=== PATIENT | female | born 2000 | race Caucasian/White ===

== ENCOUNTER → 2019-08-12 | Outpatient (CLI) | payer OTHER ==
[2019-08-12 17:43] LABS: BASO % 0.6 % (0.0-1.0); EOS # 0.1 10^3/uL (0.0-0.5); EOS % 1.4 % (0.0-3.0); HEMATOCRIT 42.5 % (36.0-47.0); HEMOGLOBIN 13.4 g/dl (12.0-15.5); LYMPH # 1.5 10^3/uL (1.5-5.0); LYMPH % 23.8 % (24.0-44.0); MEAN CORPUSCULAR HEMOGLOBIN 28.4 pg (27.0-33.0); MEAN CORPUSCULAR HGB CONC 31.5 g/dl (32.0-36.5); MONO # 0.8 10^3/uL (0.0-0.8); MONO % 12.8 % (0.0-5.0); NEUTROPHILS # 3.9 10^3/uL (1.5-8.5); NEUTROPHILS % 61.1 % (36.0-66.0); PLATELET COUNT, AUTOMATED 344 10^3/uL (150-450); RED BLOOD COUNT 4.72 10^6/uL (4.00-5.40); WHITE BLOOD COUNT 6.5 10^3/uL (4.0-10.0)
[2019-08-12 17:55] LABS: ALBUMIN 3.8 GM/DL (3.2-5.2); ALT/SGPT 24 U/L (12-78); BILIRUBIN,TOTAL 0.4 MG/DL (0.2-1.0); BLOOD UREA NITROGEN 9 MG/DL (7-18); CALCIUM LEVEL 9.2 MG/DL (8.5-10.1); CARBON DIOXIDE LEVEL 27 MEQ/L (21-32); CHLORIDE LEVEL 108 MEQ/L (98-107); CHOLESTEROL LEVEL 175 MG/DL (<200); CHOLESTEROL RISK RATIO 2.536 (<5); CREATININE FOR GFR 0.79 MG/DL (0.55-1.30); FREE T4 0.89 NG/DL (0.76-1.46); GLOMERULAR FILTRATION RATE > 60.0 (>60); GLUCOSE, FASTING 88 MG/DL (70-100); HDL CHOLESTEROL 69 MG/DL (>40); LDL CHOLESTEROL 82 MG/DL (<100); NON-HDL-C 106 MG/DL; POTASSIUM SERUM 4.4 MEQ/L (3.5-5.1); SODIUM LEVEL 141 MEQ/L (136-145); THYROID STIMULATING HORMONE 0.847 uIU/ML (0.358-3.740); TOTAL PROTEIN 7.2 GM/DL (6.4-8.2); TRIGLYCERIDES LEVEL 119 MG/DL (<150)
[2019-08-12 18:00] LABS: HEMOGLOBIN A1c 5.5 %
[2019-08-14 10:40] LABS: RUBELLA IgG QUALITATIVE IMMUNE (IMMUNE)
[2019-08-15 08:26] LABS: MUMPS VIRUS IgG ANTIBODY 65.3 AU/mL (Immune >10.9)
== END ==
LOC: M WUC 12:02
PROVIDERS: ATTEND Nurse Practitioner
DX: Z00.01 Encounter for general adult medical examination with abnormal findings (principal)

== ENCOUNTER → 2019-10-05 | Outpatient (REF) | payer OTHER ==
[2019-10-05 15:42] LABS: CHLAMYDIA DNA AMPLIFICATION NEGATIVE (NEGATIVE); GC DNA AMPLIFICATION NEGATIVE (NEGATIVE)
== END ==
LOC: M SFHCWAGY 10:19
PROVIDERS: ATTEND Nurse Practitioner Family
DX: Z12.4 Encounter for screening for malignant neoplasm of cervix (principal); Z11.3 Encounter for screening for infections with a predominantly sexual mode of transmission

== ENCOUNTER → 2019-10-05 | Outpatient (CLI) | payer OTHER ==
[2019-10-05 13:35] LABS: HEMATOCRIT 42.6 % (36.0-47.0); HEMOGLOBIN 13.7 g/dl (12.0-15.5); MEAN CORPUSCULAR HEMOGLOBIN 28.7 pg (27.0-33.0); MEAN CORPUSCULAR HGB CONC 32.2 g/dl (32.0-36.5); MEAN CORPUSCULAR VOLUME 89.3 fl (80.0-96.0); PLATELET COUNT, AUTOMATED 370 10^3/uL (150-450); RED BLOOD COUNT 4.77 10^6/uL (4.00-5.40)
== END ==
LOC: M PLALAB 09:40
PROVIDERS: ATTEND Nurse Practitioner Family
DX: Z11.3 Encounter for screening for infections with a predominantly sexual mode of transmission (principal); N92.6 Irregular menstruation, unspecified

== ENCOUNTER → 2019-10-12 | Outpatient (CLI) | payer OTHER ==
--- NOTE | 2019-10-13 03:47 | REP ---
Clinical: Pelvic pain/cramping and irregular menstrual cycles. Technique: Transabdominal pelvic ultrasound with color Doppler evaluation of the ovaries. Findings: Normal anteverted uterus measures 7.7 x 5.0 x 3.0 cm. Endometrial complex measures 3.8 mm thickness. No discrete uterine or endometrial abnormalities appreciated. Ovaries are normal in vascularity without torsion. Right ovary measures 6.2 x 2.5 x 4.7 cm (RI 0.67) and includes two simple likely physiologic cysts measuring 3.1 cm and 3.0 cm maximal diameter. Left ovary measures 1.9 x 1.2 x 1.6 cm (RI 0.52). No pelvic fluid or adnexal mass lesion. Impression: 1. Normal uterus. 2. Two right ovarian cysts likely physiologic. Consider follow-up examination in 4-6 weeks to evaluate for resolution if the patient remains symptomatic.
== END ==
LOC: M WHC 09:29
PROVIDERS: ATTEND Nurse Practitioner Family
DX: N83.201 Unspecified ovarian cyst, right side (principal); R10.2 Pelvic and perineal pain; N92.6 Irregular menstruation, unspecified

== ENCOUNTER → 2019-11-28 | Outpatient (CLI) | payer OTHER ==
--- NOTE | 2019-11-28 14:17 | REP ---
PELVIC SONOGRAPHY: HISTORY: Right ovarian cyst. Comparison pelvic sonography October 12, 2019 showed two right-sided ovarian cyst likely physiologic. These measured 3.1 and 3.0 cm in greatest diameter. SONOGRAPHIC FINDINGS: Transabdominal scanning is performed. Uterine dimensions are 8.1 x 3.3 x 4.3 cm. Endometrial echo 0.4 cm thick. No focal uterine mass seen. No free fluid is noted. The right ovary dimensions are 3.2 x 1.1 x 2.5 cm. There is a 2.0 cm follicle cyst in the right ovary today. The left ovary measures 4.6 x 2.6 x 4.1 cm. There is a 3.8 x 3.7 x 2.1 cm cystic area in the left ovary today not previously present. There is Doppler flow present in both ovaries. IMPRESSION: Previously noted right ovarian cysts have resolved. There is a 3.8 cm simple appearing cyst in the left ovary today.
== END ==
LOC: M WHC 10:27
PROVIDERS: ATTEND Nurse Practitioner Family
DX: N83.202 Unspecified ovarian cyst, left side (principal)

== ENCOUNTER 2022-04-29 22:24 | Emergency (ER) | payer BC, OTHER ==
[~2022-04-29] VITALS: Ht 160 cm; Wt 72.7 kg
[2022-04-29 22:25] VITALS: BP 143/94
[2022-04-29] MEDS ORDERED: TOPI200T7 PO (22:46)
[2022-04-29] MEDS ORDERED: RIME75TA PO (22:46)
[2022-04-29] MEDS ORDERED: BUPR150T12 PO (22:46)
[2022-04-29] MEDS ORDERED: CETI5SOL3 PO (22:46)
[2022-04-29] MEDS ORDERED: ONDA4TAB6 PO (22:46)
[2022-04-30] MEDS ORDERED: BACTRIM 160MG/800MG DS TAB PO ONE (01:45)
[2022-04-30] MEDS ORDERED: NEOSPORIN OINT 0.9 GM PKT TOP ONE (01:45)
[2022-04-30] MEDS ORDERED: BACT800T5 PO (01:46)
== END 2022-04-30 02:16 | disposition home or self-care (01) ==
LOC: M ED 22:24
DX: S91.002A Unspecified open wound, left ankle, initial encounter (principal); W17.89XA Other fall from one level to another, initial encounter; Y92.89 Other specified places as the place of occurrence of the external cause; L08.9 Local infection of the skin and subcutaneous tissue, unspecified; Z79.899 Other long term (current) drug therapy

== ENCOUNTER → 2025-07-13 | Outpatient (CLI) | payer OTHER ==
[~2025-07-13] MED LIST: BACT800T5 PO; BUPR150T12 PO; CETI5SOL3 PO; ONDA-282 PO; RIME75TA PO; TOPI-14 PO
[2025-07-13 12:27] LABS: BASO # 0.0 10^3/uL (0.0-0.2); BASO % 0.4 % (0.0-1.0); EOS # 0.1 10^3/uL (0.0-0.5); EOS % 1.5 % (0.0-3.0); LYMPH # 2.7 10^3/uL (1.5-5.0); LYMPH % 30.7 % (24.0-44.0); MONO # 0.7 10^3/uL (0.0-0.8); MONO % 8.0 % (2.0-8.0); NEUTROPHILS # 5.3 10^3/uL (1.5-8.5); NEUTROPHILS % 59.2 % (36.0-66.0); PLATELET COUNT, AUTOMATED 388 10^3/uL (150-450)
[2025-07-13 12:39] LABS: APPEARANCE, URINE HAZY (CLEAR); BACTERIA, URINE AUTO NEGATIVE (NEGATIVE); BILIRUBIN, URINE AUTO NEGATIVE (NEGATIVE); BLOOD, URINE BLOOD NEGATIVE (NEGATIVE); GLUCOSE, URINE (UA) AUTO NEGATIVE (NEGATIVE); KETONE, URINE AUTO NEGATIVE (NEGATIVE); LEUKOCYTE ESTERASE, URINE AUTO NEGATIVE (NEGATIVE); NITRITE, URINE AUTO NEGATIVE (NEGATIVE); PROTEIN, URINE AUTO NEGATIVE (NEGATIVE); RBC, URINE AUTO 1 /HPF (0-3); SPECIFIC GRAVITY URINE AUTO 1.021 (1.002-1.035); SQUAMOUS EPITHELIAL CELL UR AU 5 /HPF (0-6); UROBILINOGEN, URINE AUTO 0.2 mg/dL (0.0-2.0); WBC, URINE AUTO 1 /HPF (0-3)
[2025-07-13 12:59] LABS: ALT/SGPT 15 U/L (7.0-40); AST/SGOT 13 U/L (<34); CALCIUM LEVEL 9.2 MG/DL (8.5-10.1); CARBON DIOXIDE LEVEL 26 MMOL/L (20-31); CHLORIDE LEVEL 106 MMOL/L (98-107); CHOLESTEROL LEVEL 187 MG/DL (<200); CHOLESTEROL RISK RATIO 2.53 (<5); CREATININE FOR GFR 0.88 MG/DL (0.55-1.30); FREE T4 1.02 NG/DL (0.89-1.76); GLOMERULAR FILTRATION RATE > 90.0 (>60); LDL CHOLESTEROL 97.9 MG/DL (<100); NON-HDL-C 113.1 MG/DL; POTASSIUM SERUM 4.5 MMOL/L (3.5-5.1); SODIUM LEVEL 141 MMOL/L (136-145); TRIGLYCERIDES LEVEL 76 MG/DL (<150)
[2025-07-13 13:00] LABS: TOTAL 25(OH) VITAMIN D 26.8 NG/ML (20.0-100.0)
== END ==
LOC: M WUC 08:40
PROVIDERS: ATTEND Nurse Practitioner
DX: E55.9 Vitamin D deficiency, unspecified (principal); E78.9 Disorder of lipoprotein metabolism, unspecified; I10 Essential (primary) hypertension; E03.9 Hypothyroidism, unspecified; N39.0 Urinary tract infection, site not specified